=== PATIENT | male | born 1935 | race African-American/Black ===

== ENCOUNTER 2023-11-29 15:18 | Emergency (ER) | payer OTHER ==
[~2023-11-29] VITALS: Ht 177.8 cm; Wt 91.0 kg
[2023-11-29 15:40] VITALS: PULSE 88; RESP 24; O2SAT 99
[2023-11-29] MEDS: ALBUTEROL (0.083%) 2.5MG/3ML NEB HHN STA ×2 (15:40→19:58)
[2023-11-29] MEDS: METHYLPREDNISOLONE SOD SUCC 125MG/2ML (ACT-O-VIAL) IV STA (16:15)
[2023-11-29 16:21] LABS: HEMATOCRIT. 40.3 % (42.0-52.0); HEMOGLOBIN. 13.2 g/dL (14.0-18.0); MEAN CORPUSCULAR HEMOGLOBIN 28.4 pg (28.0-32.0); MEAN CORPUSCULAR HGB CONC 32.6 g/dL (31.0-37.0); MEAN CORPUSCULAR VOLUME 86.9 fL (80.0-94.0); PLATELET 215 x1000/uL (130-400); RED BLOOD CELL COUNT 4.64 mill/uL (4.7-6.1); RED CELL DISTRIBUTION WIDTH 17.1 % (11.6-14.6); WHITE BLOOD COUNT 14.7 x1000/uL (4.5-11.0)
[2023-11-29 16:22] LABS: DIFFERENTIAL COMMENT 1
[2023-11-29 16:25] LABS: CHLORIDE 107 mEq/L (98-107); POTASSIUM 4.4 mEq/L (3.5-5.1); SODIUM 138 mEq/L (136-145)
[2023-11-29 16:26] LABS: CARBON DIOXIDE 24 mEq/L (21-32)
[2023-11-29 16:27] LABS: CALCIUM 9.3 mg/dL (8.7-10.4)
[2023-11-29 16:31] LABS: GLUCOSE 103 mg/dL (70-105)
[2023-11-29 16:32] LABS: UREA NITROGEN BLOOD 12 mg/dL (9-23)
[2023-11-29 16:42] LABS: TROPONIN I HIGH SENSITIVITY 61 ng/L (3.0-53)
[2023-11-29 16:51] LABS: ANISOCYTOSIS 1+; PLATELET ESTIMATE NORMAL
[2023-11-29] MEDS: IPRATROPIUM BROMIDE (0.02%) 0.5MG/2.5ML NEB HHN STA ×2 (17:30→19:58)
[2023-11-29] MEDS: SODIUM CHLORIDE 0.9% 1000ML BAG (SEPSIS BOLUS) IV ONE (19:11)
[2023-11-29 19:19] LABS: TROPONIN I HIGH SENSITIVITY 79 ng/L (3.0-53)
[2023-11-29] MEDS: CEFTRIAXONE 2GM/50ML 50 ML IV ONE (19:46)
[2023-11-29 19:58] VITALS: PULSE 101; RESP 20; O2SAT 97
[2023-11-29 20:40] LABS: LACTIC ACID 2.5 mmol/L (0.4-2.0)
[2023-11-29 21:14] VITALS: PULSE 99; RESP 20; O2SAT 97
[2023-11-29] MEDS: IPRATROPIUM/ALBUTEROL 0.5-3(2.5)MG/3ML NEB HHN STA (21:14)
[2023-11-29] MEDS: FUROSEMIDE 20MG/2ML VIAL IVP STA (22:59)
[2023-11-29 23:00] VITALS: BP 169/75; PULSE 100; RESP 29; TEMP 36.66960; O2SAT 96
== END 2023-11-29 23:58 | disposition short-term general hospital (02) ==
LOC: ER 15:18 → CANBEDREQ 19:02 → ER 23:58
DX: J44.1 Chronic obstructive pulmonary disease with (acute) exacerbation (principal); J18.9 Pneumonia, unspecified organism; I11.0 Hypertensive heart disease with heart failure; I50.9 Heart failure, unspecified; Z88.0 Allergy status to penicillin
CPT/HCPCS: 99291; 96365; 96375; 96361; 80048; 83880; 83605; 85025; 87040; 84484; 36415; 71045; 94640; 93005; J0696; J1940; J2919